=== PATIENT | male | born 1945 ===

== ENCOUNTER 2017-01-03 09:00 | Outpatient (CLI) | payer OTHER ==
[~2017-01-03] VITALS: Ht 166.4 cm; Wt 80.0 kg
[2017-01-03 09:58] VITALS: BP 126/68; PULSE 96; RESP 16; Ht 166.4 cm; Wt 80.0 kg
[2017-01-03] MEDS ORDERED: HEPA500021 IJ (12:59)
[2017-01-03] MEDS ORDERED: ACET-2047 PO (12:59)
[2017-01-03] MEDS ORDERED: MINE133E23 PR (12:59)
[2017-01-03] MEDS ORDERED: GABA400C14 PO (12:59)
[2017-01-03] MEDS ORDERED: BISA10SU55 RC (12:59)
[2017-01-03] MEDS ORDERED: INSU100C SQ (13:06)
[2017-01-03] MEDS ORDERED: HYDR4TAB PO (13:06)
[2017-01-03] MEDS ORDERED: SUCR1TAB56 PO (13:11)
[2017-01-03] MEDS ORDERED: LANT3I SC (13:11)
[2017-01-03] MEDS ORDERED: SENN-53 PO ×2 (13:11)
[2017-01-03] MEDS ORDERED: PANT40TA4 PO (13:11)
[2017-01-03] MEDS ORDERED: [UNRECOGNIZED DRUG - CODE] PO (13:11)
[2017-01-03] MEDS ORDERED: CRES10 PO (13:11)
[2017-01-03] MEDS ORDERED: LACT1CAP52 PO (13:11)
[2017-01-03] MEDS ORDERED: LUBI24CA7 PO (13:11)
--- NOTE | 2017-01-03 14:00 | PN ---
Date/Time of Note Date/Time of Note DATE: 01/03/17 TIME: 13:38 Assessment/Plan Assessment/Plan Assessment/Plan [facility] Progress Note Date of Service: 01/03/2017 Today's Impression & Plan: Overall has remained stable and improved. No evidence for major postoperative complications or surgical site infections. No indication for acute surgical intervention. Patient appears to be slowly recovering at the [facility], and will likely be able to discharge home once able to ambulate on his own without assistance. The skin blisters near his drain site should also heal with conservative management and appropriate dressings. Rest of the wounds appear to be healing well without any issues and there is no evidence of any infection. Answered all questions. Patient appeared to understand and agreed with the plans. With above assessment, I've recommended the following for today: 1. Continue current management 2. Increase activity 3. May discharge from retirement once able to ambulate on his own without assist 4. Follow-up with Dr. Tang, his primary care physician 5. Follow-up with us prn Thank you again for allowing us to participate in the care of this very pleasant gentleman and I'm certain his wonderful family. If there are any questions, please feel free to call me at area code [phone]. Nature presenting problem: Moderate risk Complexity decision making: Moderate complexity Please note: Spelling or grammatical errors in this note are likely due to EHR/ dictation systems and are not reflective of patient care quality. Occasional wrong-word or sound-alike substitutions may have occurred due to the inherent limitations of voice recognition software. Please read the chart carefully and recognize, using context, where the substitutions have occurred. The chart may also contain mistakes due to difficulties with voice recognition software. Also please note that the dictation timestamp of this note does not necessarily reflected time of the visit for this service. Updated clinical summary: A very pleasant 71-year-old gentleman with a few comorbidities presenting with what appears to be omental abscess in the right upper quadrant without clear etiology. RUQ US unremarkable 12/18/16. Bilateral carotid duplex US unremarkable 12/19/16. S/p laparoscopic, hand-assisted, cholecystectomy and lysis of adhesions [facility] 12/24/16 for severe acute on chronic cholecystitis with gallbladder perforation and abscess. Did relatively well post op. Drain d/c'd and d/c'd to [facility] 12/28/16. Comorbidities: 1. Severe acute on chronic cholecystitis with gallbladder perforation and abscess. Laparoscopic, hand-assisted, cholecystectomy and lysis of adhesions [facility] 12/24/16 2. Bradycardia 3. Diabetes 4. Dizziness 5. Back pain 6. Knee pain 7. Hypoalbuminemia (2.2 after resuscitation) 8. Mild hyperbilirubinemia (1.3) 9. Enlarged fatty liver (CT abd/pelvis [facility] 12/16/16) 10. 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 Mild dependent atelectasis (CT abd/pelvis [facility] 12/16/16) 12. Cardiomegaly (CT abd/pelvis [facility] 12/16/16) 13. Atherosclerotic calcifications of the aorta (CT abd/pelvis [facility] 12/16/16) 14. Aberrant right subclavian artery (CT abd/pelvis [facility] 12/16/16) 15. S/p cervical fusion 16. S/p lumbar fusion 17. BMI 29.8 neck sign Subjective: No major events or complaints since d/c to [facility]. No major abdominal pain and under control with medications. No N/V, SOB or CP. + bowel activity. Still unable to stand up on his own and ambulate without assistance. Objective: Vitals: reviewed; please also see EHR Physical Exam: Lungs: breathing comfortably without tachypnea; no audible wheezes, rales or rhonchi on gross exam Abd: Soft, mildly tender in the right upper quadrant only, and non-distended ; no peritoneal signs or guarding. Incisions c/d/i w/o obvious e/e/d/h. Drain site still with some skin blisters, which were originally from adhesive tape. Skin: Appears pink and feels warm to touch Neuro: Awake, alert and follows commands appropriately Exam/Review of Systems Vital Signs Vitals Vital Signs Date Time Temp Pulse Resp B/P Pulse Ox O2 Delivery O2 Flow Rate FiO2 01/03/17 09:58 98.8 96 16 126/68 98 Room Air TODD ARITA M.D. Jan 03, 2017 14:00
== END 2017-01-03 17:00 | disposition home or self-care (01) ==
LOC: HPC 09:00
PROVIDERS: ATTEND Transplant Surgery
DX: K80.10 Calculus of gallbladder with chronic cholecystitis without obstruction (principal); K76.0 Fatty (change of) liver, not elsewhere classified; E88.09 Other disorders of plasma-protein metabolism, not elsewhere classified; I51.7 Cardiomegaly
CPT/HCPCS: G0463